=== PATIENT | male | born 1940 | race Caucasian/White ===

== ENCOUNTER → 2017-04-20 | Outpatient (CLI) | payer MEDICARE ==
[~2017-04-20] MED LIST: /AUGM875TA; ASPI81TA31; BLOOD PRESSURE MED; GLUC850T; METO25TA2; NATURAL TEARS; VICODIN; VICODINES TAB; [UNRECOGNIZED DRUG - OTHER]
--- NOTE | 2017-04-20 10:02 | RADONC ---
RADIATION ONCOLOGY FOLLOWUP NOTE DATE: 04/20/2017 CHART NUMBRE: DIAGNOSIS: Parotid cancer, stage III, TxN1M0, ECOG performance status 1. FOLLOWUP NOTE: Mr. 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 The patient presents today reporting that generally he is doing well. He did have another skin cancer on his left sikh. He also reports that he had a stroke within this last year at the [facility], but drove all the way back to [place] prior to being seen by a physician. He reports the symptoms have resolved. The patient continues to have multiple healing and reopening lesions present over his treated neck, but also from his forehead which he continues to report are oozing an oily substance. This has gone on for many, many years. It has not progressed or worsened. REVIEW OF SYSTEMS: The patient's review of systems is otherwise noncontributory except for those above. Denies nausea, vomiting, fevers, chills, night sweats, diplopia, headaches, anxiety or depression, anorexia, weight loss, visual disturbances, chest pain, urinary or bowel difficulties, bone pain, or neurological problems. PHYSICAL EXAMINATION: The patient is an elderly white male in no acute distress with multiple open sores on his face and neck, some of which are oozing. HEENT exam is otherwise normocephalic, atraumatic. He does have a skin graft surgical scar present over his left sikh which is new. There is no palpable preauricular, cervical, supraclavicular, or infraclavicular lymphadenopathy present. There is no evidence of recurrent disease present. ASSESSMENT: The patient is clinically doing well at this point. I have tentatively set him up for a followup visit in our office in 1 year. He will continue close followup with his other physicians as well. cc: *Yojana George, RPA-C *Asher Isbell MD
== END ==
LOC: M ONCR 09:14
PROVIDERS: ATTEND Radiology Radiation Oncology
DX: C76.0 Malignant neoplasm of head, face and neck (principal)

== ENCOUNTER → 2018-04-26 | Outpatient (CLI) | payer MEDICARE | LOC: M ONCR 09:21 | DX: Z08 Encounter for follow-up examination after completed treatment for malignant neoplasm (principal); Z85.858 Personal history of malignant neoplasm of other endocrine glands | CPT/HCPCS: G0463 ==

== ENCOUNTER → 2019-11-12 | Outpatient (REF) | payer MEDICARE | LOC: M LAB LCGH 18:19 | PROVIDERS: ATTEND Physician Assistant | DX: D48.5 Neoplasm of uncertain behavior of skin (principal) ==

== ENCOUNTER → 2022-06-30 | Outpatient (CLI) | payer MEDICARE ==
[2022-06-30 12:56] LABS: BLOOD UREA NITROGEN 14 MG/DL (7-18); CREATININE FOR GFR 1.14 MG/DL (0.70-1.30); GLOMERULAR FILTRATION RATE > 60.0 (>35)
== END ==
LOC: M LAB 11:47
PROVIDERS: ATTEND Dermatology
DX: C79.9 Secondary malignant neoplasm of unspecified site (principal)

== ENCOUNTER → 2022-07-01 | Outpatient (CLI) | payer MEDICARE ==
[~2022-07-01] MED LIST changes: +ISOVUE-370 76% 100ML VIAL As Ordered ONE
== END ==
LOC: M RAD 09:34
PROVIDERS: ATTEND Dermatology
DX: C79.9 Secondary malignant neoplasm of unspecified site (principal); I65.21 Occlusion and stenosis of right carotid artery; G31.9 Degenerative disease of nervous system, unspecified; H70.92 Unspecified mastoiditis, left ear; Z98.890 Other specified postprocedural states
CPT/HCPCS: 70470; 70491; Q9967